=== PATIENT | female | born 1980 | race African-American/Black ===

== ENCOUNTER 2019-06-30 02:55 | Emergency (ER) | payer BC, SELFPAY ==
--- NOTE | ~2019-06-30 | CT_ITS ---
EXAMINATION: CT abdomen pelvis w con DATE: 06/30/2019 03:46 INDICATION: Right lower quadrant abdominal pain for 3 days. TECHNIQUE: Computed tomography (CT) of the abdomen and pelvis was performed without intravenous contr ast. Automated exposure control and iterative reconstruction technique were employed. Exam dose: 990 .31 mGy-cm total exam DLP. COMPARISON: None. FINDINGS: The lung bases are clear. Normal heart size. No pericardial or pleural effusion. Nonspecific small amount of free fluid along the posterior lower margin of the liver, right paracolic gutter and minimal interloop ascites.. The gallbladder is present. No bile duct or pancreatic duct dilatation. No hepatic, pancreatic, splen ic, adrenal or renal space-occupying mass lesion is evident. Normal caliber of the abdominal aorta. No intraperitoneal or retroperitoneal or pelvic mass lesion or adenopathy or ascites. There is an approximately 2.7 cm involuting follicle of the left ovary. There is marketed enlargement of the uterus with numerous calcified fibroids. The uterus measures up to 22 cm height, 12 cm anteroposterior dimension. An IUD is identified within the uterus. There is a prominent amount of fecal material within the colon. No bowel obstruction or intraperitone al free air. Small fat-containing umbilical hernia. Included skeletal structures are unremarkable. IMPRESSION: Minimal nonspecific free fluid within the abdominal cavity. Consider enteritis given the presence of trace interloop ascites, although no associated bowel wall thickening is noted. Normal appendix. Prominent uterine enlargement and numerous calcified uterine fibroids. IUD 2.7 cm probable involuting left ovarian follicle Reviewed, dictated and finalized at [facility]. Reviewed, dictated and finalized at [facility]. IMPRESSION: Minimal nonspecific free fluid within the abdominal cavity. Consid er enteritis given the presence of trace interloop ascites, although no associa ankit bowel wall thickening is noted. Normal appendix. Prominent uterine enlargement and numerous calcified uterine fibroids. IUD 2.7 cm probable involuting left ovarian follicle
[2019-06-30 02:59] VITALS: BP 166/70; PULSE 90; RESP 18; TEMP 36.6; O2SAT 100
[2019-06-30 03:20] LABS: Basophils Percent Auto 0.3 % (0.2-1.2); Eosinophils Absolute Auto 0.1 K/mm3 (0-0.3); Eosinophils Percent Auto 1.3 % (0-4.4); Hematocrit 35.7 % (37.0-47.0); Hemoglobin 10.5 g/dL (12.0-15.0); Immature Granulocyte Absolute 0.02 K/mm3 (0.00-0.031); Immature Granulocyte Percent A 0.3 % (0-0.5); Lymphocytes Absolute Auto 2.34 K/mm3 (0.9-3.2); Lymphocytes Percent Auto 31.4 % (18.3-44.2); Mean Corpuscular HGB Conc 29.4 g/dl (32-36); Mean Corpuscular Hemoglobin 24.1 pg (26-34); Mean Corpuscular Volume 82.1 fl (80-100); Mean Platelet Volume 9.3 fl (7.4-10.4); Monocytes Absolute Auto 0.8 K/mm3 (0.1-0.6); Monocytes Percent Auto 10.5 % (2.6-8.5); Neutrophils Absolute Auto 4.2 K/mm3 (1.3-6.7); Neutrophils Percent Auto 56.2 % (45.5-73.1); Platelet Count Result 363 k/mm3 (150-375); Red Blood Count 4.35 M/mm3 (4.2-5.4); Red Cell Distribution Width 16.1 % (11.5-14.5); White Blood Count 7.5 K/mm3 (4.5-10.0)
--- NOTE | 2019-06-30 03:23 | ED.ABDPAIN ---
HPI - Abdominal Pain General Chief Complaint: Abdominal Pain Stated Complaint: RLQ abd pain Time Seen by Provider: 06/30/19 03:02 Source: patient Mode of arrival: ambulatory Limitations: no limitations History of Present Illness HPI narrative: Patient is a 38-year-old female who presents to the emergency department with complaint of right lower quadrant abdominal pain. Patient reports onset of symptoms 3 days ago. Patient states she took a detox tea every day for the past 3 days. Patient denies any nausea, vomiting, or diarrhea aside from the laxative effects of the tea. Patient denies having had any constipation or urinary symptoms. Patient states the pain is sharp and located in the right lower quadrant. She denies any radiation of pain. She states pain is worse with movement. MD elicited complaint: abdominal pain Pertinent past history: none Onset (ago): day(s) (3) Pain Consistency: constant (With waxing/waning intensity) Location: RLQ Quality: sharp Radiation: none Migration to: no migration Exacerbating factors: movement Associated symptoms: denies other symptoms Review of Systems Review of Systems: All systems reviewed & are unremarkable except as noted in HPI and below Constitutional: Constitutional: Denies fever(s) Respiratory: Respiratory: Denies cough and Denies dyspnea Gastrointestinal: Gastrointestinal: Reports abdominal pain, Denies constipation, Denies diarrhea, Denies nausea and Denies vomiting Genitourinary: Genitourinary: Denies hematuria and Denies dysuria Musculoskeletal: Musculoskeletal: Denies back pain [facility] Past Medical History Medical History (Updated 06/30/19 @ 04:04 by Naina Thomas MD) Diabetes mellitus Uterine fibroid Surgical History Surgical History (Updated 06/30/19 @ 03:26 by Naina Thomas MD) No history of previous surgery Social History Social History (Updated 06/30/19 @ 03:26 by Naina Thomas MD) Smoking status: Never smoker Living arrangements: with family Gender identity (if verbalized by the patient): Female Exam Const: General: cooperative, no acute distress and alert Nutritional Appearance: well nourished Orientation/consciousness: patient oriented x3 Limitations: no limitations HENMT: Mouth: Yes lip normal and Yes moist mucous membranes Resp: Effort & Inspection: normal respiratory effort Auscultation: clear to auscultation bilaterally Cardio: Rate: regular rate Rhythm: regular rhythm GI: GI Palp: Yes Soft to palpation, Yes Tenderness to palpation present (GI) (Diffuse, greatest right lower quadrant), No Guarding due to palpation present (GI) and Yes Rebound tenderness present Auscultation: normal bowel sounds Other: Palpation elsewhere in the abdomen causes right lower quadrant pain : General: Yes no CVA tenderness Skin: General skin exam: normal color Neuro: General: patient oriented x3 Cognition (Neuro): normal cognition Speech: normal speech Extrem: General: normal to inspection, full ROM and no clubbing, cyanosis or edema Psych: Mental Status: mental status grossly normal Affect: normal affect Attitude: cooperative Course Course Emergency Course: Patient feeling better after Toradol. No findings to suggest appendicitis on CT scan. Suspect stimulant effect from her detox tea is causing some degree of bowel cramping and discomfort leading to her pain. Patient advised to use [id number] analgesics for pain and stop use of the tea that she has been drinking. Patient does have sizable fibroid uterus and is advised to follow-up with [facility]. Patient also advised she needs to seek primary care physician for further management of diabetes as her blood sugar is elevated and ongoing poor care for diabetes could lead to renal failure among other complications. Vital Signs Vital signs: Vital Signs Temperature 97.8 F 06/30/19 02:59 Pulse Rate 90 06/30/19 02:59 Respiratory Rate 18 06/30/19 02:59 Blood
[2019-06-30] MEDS: KETOROLAC 30 MG/ML VIAL (*BKC) IV PUSH (03:25)
[2019-06-30 03:35] LABS: Add Urine Microscopic? YES; Appearance Urine Clear (Clear); Bilirubin Urine Negative (Negative); Blood Urine Negative (Negative); Color Urine Straw (Yellow); Glucose Urine UA 1+ mg/dL (Negative); Ketones Urine Negative (Negative); Leukocyte Esterase Ur Trace LEU/UL (Negative); Mucus Urine Rare /lpf; Nitrate Urine Negative (Negative); Protein Urine Negative (Negative); Urobilinogen Urine Negative mg/dL (<2.0)
[2019-06-30 03:37] LABS: Alanine Aminotransferase 12 U/L (4-35); Albumin Level 4.2 g/dL (3.5-5.1); Alkaline Phosphatase 82 U/L (38-126); Aspartate Amino Transferase 16 U/L (14-36); Bilirubin,Total 0.3 mg/dL (0.2-1.3); Blood Urea Nitrogen 11 mg/dL (7-17); Carbon Dioxide 26 mmol/L (22-30); Chloride 102 mmol/L (98-107); Estimated Glomerular Filt Rate > 60; Glucose 228 mg/dL (65-105); Lipase 105 U/L (23-300); Potassium 4.1 mmol/L (3.4-5.0); Sodium 136 mmol/L (137-145)
[2019-06-30 03:39] LABS: Estimated Glomerular Filt Rate > 60
[2019-06-30 03:42] LABS: Hypochromasia 2+ (NORMAL); Ovalocytes 1+ (NORMAL); Platelet Estimate Adequate (Adequate)
[2019-06-30 04:17] VITALS: BP 138/77; PULSE 77; RESP 18; O2SAT 98
== END 2019-06-30 04:18 | disposition home or self-care (01) ==
PROVIDERS: Emergency Provider Emergency Medicine
DX: R10.31 Right lower quadrant pain (principal); D25.9 Leiomyoma of uterus, unspecified; E11.65 Type 2 diabetes mellitus with hyperglycemia; Z97.5 Presence of (intrauterine) contraceptive device
CPT/HCPCS: 36415; 74177; 80053; 81001; 81025; 83690; 85025; 87086; 87088; 96374; 99284; J1885; Q9967

== ENCOUNTER 2019-10-11 18:45 | Emergency (ER) | payer BC, SELFPAY ==
[2019-10-11] VITALS (11 sets, daily range): BP systolic 121–139; BP diastolic 69–94; PULSE 82–142; RESP 20–30; TEMP 36.8–37.9; O2SAT 97–100
--- NOTE | ~2019-10-11 | XR_ITS ---
EXAMINATION: XR chest 1V portable EXAM DATE: 10/11/2019 19:24 INDICATION: COVID 19. TECHNIQUE: Portable AP frontal chest x-ray was obtained. There is no prior study for comparison. FINDINGS: Small amount of bilateral ill-defined upper lobe airspace disease suspected. Given history provided, most likely small amount of acute lung injury from viral infection. No confluent consolidat ion, pneumothorax or pleural effusion suspected. There are no osseous abnormalities identified. Cardi omediastinal silhouette is normal. IMPRESSION: Small amount of bilateral upper lobe ill-defined acute airspace disease. Reviewed, dictated and finalized at [facility]. IMPRESSION: Small amount of bilateral upper lobe ill-defined acute airspace di sease.
--- NOTE | 2019-10-11 19:20 | ECG_ITS ---
Measurements Intervals Louise Rate: 109 P: 65 KS: 133 QRS: -32 QRSD: 98 T: 4 QT: 377 QTc: 509 Interpretive Statements SINUS TACHYCARDIA LEFT AXIS DEVIATION RSR' IN V1 OR V2, CONSIDER RIGHT VENTRICULAR HYPERTROPHY OR RIGHT VCD BORDERLINE T WAVE ABNORMALITY- INFERIOR LEADS ABNORMAL ECG Electronically Signed On 10-11-2019 19:40:58 CDT by Eliud Kelley D.O.
[2019-10-11 20:00] LABS: Basophils Percent Auto 0.1 % (0.2-1.2); Hematocrit 31.1 % (37.0-47.0); Hemoglobin 9.9 g/dL (12.0-15.0); Immature Granulocyte Absolute 0.15 K/mm3 (0.00-0.031); Lymphocytes Absolute Auto 1.24 K/mm3 (0.9-3.2); Lymphocytes Percent Auto 8.2 % (18.3-44.2); Mean Corpuscular HGB Conc 31.8 g/dl (32-36); Mean Corpuscular Hemoglobin 25.7 pg (26-34); Mean Corpuscular Volume 80.8 fl (80-100); Mean Platelet Volume 9.4 fl (7.4-10.4); Monocytes Absolute Auto 1.5 K/mm3 (0.1-0.6); Monocytes Percent Auto 9.9 % (2.6-8.5); Neutrophils Absolute Auto 12.2 K/mm3 (1.3-6.7); Neutrophils Percent Auto 80.8 % (45.5-73.1); Platelet Count Result 677 k/mm3 (150-375); Red Blood Count 3.85 M/mm3 (4.2-5.4); Red Cell Distribution Width 14.6 % (11.5-14.5); White Blood Count 15.1 K/mm3 (4.5-10.0)
[2019-10-11 20:15] LABS: Anion Gap 15 mmol/L (8-16); Blood Urea Nitrogen 10 mg/dL (7-17); Calcium 9.1 mg/dL (8.4-10.2); Carbon Dioxide 17 mmol/L (22-30); Chloride 98 mmol/L (98-107); Estimated CRCL calculation 78 ml/min; Estimated Glomerular Filt Rate > 60; Glucose 283 mg/dL (65-105); Potassium 3.9 mmol/L (3.4-5.0); Sodium 130 mmol/L (137-145)
[2019-10-11] MEDS: SODIUM CHLORIDE 0.9% IV 1,000 ML 999 ML IV CONT (20:50)
--- NOTE | 2019-10-11 21:01 | ED.SOB ---
HPI - SOB/Dyspnea General Chief Complaint: Shortness of Breath/Dyspnea Stated Complaint: COVID + FEVER,SOB,N/V Time Seen by Provider: 10/11/19 20:38 History of Present Illness HPI Narrative: Patient presents with her who are both positive for COVID. They are both coughing in the room. Patient wears her mask under her nose. Patient presents with increasing shortness of breath. She has no pain currently but when she coughs she has lower abdominal pain. Her fever still going up and down. She has borderline diabetes which has been controlled by diet. She is recently been drinking a lot of sugared beverages. Her blood sugar was over 400 at home. She works at the [employer]. She has an IUD for control. She has had no surgeries. She does not smoke cigarettes, drink alcohol, or do drugs. MD elicited complaint: shortness of breath and cough Pertinent past history: other (Known COVID) Onset (ago): day(s) Context: recent illness Timing: constant Severity: moderate Exacerbating factors: nothing Relieving factors: nothing Known history of: diabetes Associated symptoms: fever, cough, polydipsia (Drinking sugary beverages) and abdominal pain Treatment prior to arrival: none Related Data Allergies Allergy/AdvReac Type Severity Reaction Status Date / Time No Known Allergies Allergy Verified 10/11/19 19:28 Review of Systems Review of Systems: Narrative: CONSTITUTIONAL: He has fever, chills, or sweats. EYES: Denies visual changes, redness, or discharge. ENT: Denies rhinorrhea, congestion, sore throat, or otalgia. CARDIOVASCULAR: Denies chest pain, palpitations, or edema. RESPIRATORY: He has cough or dyspnea. GASTROINTESTINAL: She has lower abdominal pain with coughing, but not nausea, vomiting, or diarrhea. GENITOURINARY: Denies dysuria or hematuria. SKIN: Denies rash or itching. MUSCULOSKELETAL: Denies back pain, joint pain, or myalgia. NEUROLOGIC: Denies headache, numbness, or weakness. . All systems reviewed & are unremarkable except as noted in HPI and below PMFSH Past Medical History Medical History COVID-19 Diabetes mellitus Uterine fibroid Surgical History Surgical History No history of previous surgery Social History Social History Smoking status: Never smoker Gender identity (if verbalized by the patient): Female Exam Narrative: Exam Narrative: GENERAL: Well-appearing, well-nourished, and in no acute distress. Coughing. HEAD: Normocephalic, atraumatic. EYES: PERRLA and EOMI. ENT: Nares clear, no rhinorrhea or epistaxis. Mucous membranes moist. NECK: Supple. CHEST: Clear to auscultation. No respiratory distress. HEART: Regular rate and rhythm. No murmur heard. Normal peripheral pulses. ABDOMEN: Soft, nontender, nondistended, normal active bowel sounds. EXTREMITIES: Normal range of motion. No edema. SKIN: Warm, dry, no rash. NEURO: No focal deficits. Alert and oriented x3. PSYCH: Normal mood and affect. Const: General: no acute distress and alert Orientation/consciousness: patient oriented x3 Course Vital Signs Vital signs: Vital Signs Temperature 100.2 F H 10/11/19 18:59 Pulse Rate 142 H 10/11/19 18:59 Respiratory Rate 30 H 10/11/19 18:59 Blood Pressure 121/94 H 10/11/19 18:59 Pulse Oximetry 100 10/11/19 18:59 Temperature 98.3 F 10/11/19 23:57 Pulse Rate 82 10/11/19 23:57 Respiratory Rate 20 10/11/19 23:57 Blood Pressure 126/69 10/11/19 23:57 Pulse Oximetry 97 10/11/19 23:57 MDM - SOB/Dyspnea Medical Records Attestation: I reviewed the patient's medical records. Lab Data Attestation: I reviewed the patient's lab results. Result diagrams: 10/11/19 19:31 10/11/19 19:31 Labs: Lab Results 10/11/19 10/11/19 10/11/19 Range/Units 19:31 19:31 20:57 WBC
[2019-10-11] MEDS: INSULIN HUMAN REGULAR (*BKC) 100 UNITS/ML SUB-Q (21:12)
[2019-10-11 21:18] LABS: Lactic Acid 1.5 mmol/L (0.7-2.1)
--- NOTE | 2019-10-11 21:44 | PC.NURSE ---
Patient attempted to provide a urine specimen,unable to provide specimen at this time. Patient refusing straight cath at this time.
[2019-10-11 22:40] LABS: Add Urine Microscopic? YES; Appearance Urine Cloudy (Clear); Bacteria Urine Trace /hpf; Bilirubin Urine Negative (Negative); Blood Urine 1+ (Negative); Color Urine Yellow (Yellow); Glucose Urine UA 2+ mg/dL (Negative); Hyaline Casts Urine 15-19 /lpf; Ketones Urine 1+ mg/dL (Negative); Leukocyte Esterase Ur Trace LEU/UL (Negative); Mucus Urine Rare /lpf; Nitrate Urine Negative (Negative); Protein Urine 2+ mg/dL (Negative); RBC Urine 0-2 /hpf (0-2); Specific Grav Ur 1.013 (1.001-1.035); Squamous Epithelial Cell Urine Occasional /hpf (Few)
--- NOTE | 2019-10-11 23:21 | PC.NURSE ---
bedside glucose 324
[2019-10-11 23:26] LABS: Glucose Point of Care 324 (65-105)
== END 2019-10-11 23:59 | disposition home or self-care (01) ==
PROVIDERS: Emergency Medicine; Emergency Provider Emergency Medicine
DX: U07.1 COVID-19 (principal); E87.2 Acidosis; D72.829 Elevated white blood cell count, unspecified; R73.9 Hyperglycemia, unspecified; D47.3 Essential (hemorrhagic) thrombocythemia; Z97.5 Presence of (intrauterine) contraceptive device; R73.03 Prediabetes; R00.0 Tachycardia, unspecified; R94.31 Abnormal electrocardiogram [ECG] [EKG]
CPT/HCPCS: 36415; 71045; 80048; 81001; 82948; 83605; 85025; 87040; 93005; 96365; 96368; 99284; J0456; J0696; J1815; J7030

== ENCOUNTER 2020-01-10 06:29 | Emergency (ER) | payer BC, SELFPAY ==
[2020-01-10 06:33] VITALS: BP 172/78; PULSE 81; RESP 16; TEMP 36.2; O2SAT 100
[2020-01-10 06:42] VITALS: BP 153/87; PULSE 71; RESP 16; O2SAT 100
[2020-01-10 07:03] VITALS: BP 151/84; PULSE 80; RESP 18; O2SAT 100
[2020-01-10 07:16] VITALS: BP 157/86; PULSE 71; RESP 18; O2SAT 100
[2020-01-10 07:19] LABS: Anion Gap 9 mmol/L (8-16); Blood Urea Nitrogen 11 mg/dL (7-17); Calcium 8.8 mg/dL (8.4-10.2); Carbon Dioxide 25 mmol/L (22-30); Chloride 104 mmol/L (98-107); Estimated CRCL calculation 112 ml/min; Estimated Glomerular Filt Rate > 60; Glucose 146 mg/dL (65-105); Sodium 138 mmol/L (137-145)
[2020-01-10 07:29] LABS: Add Urine Microscopic? YES; Appearance Urine Clear (Clear); Bilirubin Urine Negative (Negative); Blood Urine 1+ (Negative); Color Urine Yellow (Yellow); Glucose Urine UA Negative (Negative); Ketones Urine Negative (Negative); Leukocyte Esterase Ur Negative LEU/UL (Negative); Mucus Urine Rare /lpf; Nitrate Urine Negative (Negative); Protein Urine Negative (Negative); RBC Urine 0-2 /hpf (0-2); Specific Grav Ur 1.015 (1.001-1.035); Squamous Epithelial Cell Urine Rare /hpf (Few); Urobilinogen Urine Negative mg/dL (<2.0); WBC Urine 0-3 /hpf
[2020-01-10 07:30] LABS: Basophils Percent Auto 0.2 % (0.2-1.2); Eosinophils Absolute Auto 0.1 K/mm3 (0-0.3); Eosinophils Percent Auto 1.5 % (0-4.4); Hematocrit 34.4 % (37.0-47.0); Hemoglobin 10.5 g/dL (12.0-15.0); Immature Granulocyte Absolute 0.02 K/mm3 (0.00-0.031); Immature Granulocyte Percent A 0.4 % (0-0.5); Lymphocytes Absolute Auto 1.36 K/mm3 (0.9-3.2); Lymphocytes Percent Auto 24.9 % (18.3-44.2); Mean Corpuscular HGB Conc 30.5 g/dl (32-36); Mean Corpuscular Volume 88.4 fl (80-100); Mean Platelet Volume 9.4 fl (7.4-10.4); Monocytes Absolute Auto 0.4 K/mm3 (0.1-0.6); Monocytes Percent Auto 7.3 % (2.6-8.5); Neutrophils Absolute Auto 3.6 K/mm3 (1.3-6.7); Neutrophils Percent Auto 65.7 % (45.5-73.1); Platelet Count Result 349 k/mm3 (150-375); Red Blood Count 3.89 M/mm3 (4.2-5.4); Red Cell Distribution Width 13.9 % (11.5-14.5); White Blood Count 5.5 K/mm3 (4.5-10.0)
[2020-01-10 08:02] VITALS: BP 148/88; PULSE 68; RESP 18; O2SAT 100
--- NOTE | 2020-01-10 08:04 | ED.GENADULT ---
HPI - General Adult General Chief complaint: Recheck/Abnormal Lab/Rx Stated complaint: HTN Time Seen by Provider: 01/10/20 06:59 History of Present Illness HPI narrative: Patient is a 39-year-old female who presents ER with concerns of hypertension. Reports she is taking her blood pressure this morning and her systolic blood pressure was in the 170s. She reports that after seeing her doctor several days ago she found out her blood pressure had been running in the 140s and so she brought a monitor for home. She is having no chest pain or shortness of breath or nausea or vomiting. No headache or change in vision. Patient is taking medication for diabetes and also iron for anemia. Related Data Home Medications Medication Instructions Recorded Confirmed ergocalciferol (vitamin D2) 01/10/20 metformin mg PO 01/10/20 Allergies Allergy/AdvReac Type Severity Reaction Status Date / Time No Known Allergies Allergy Verified 01/10/20 07:05 Review of Systems Review of Systems: All systems reviewed & are unremarkable except as noted in HPI and below Constitutional: Constitutional: Denies chills, Denies fever(s) and Denies weakness Cardiovascular: Cardiovascular: Denies chest pain and Denies radiating jaw, neck or arm pain Gastrointestinal: Gastrointestinal: Denies abdominal pain, Denies nausea and Denies vomiting Neurologic: Denies headache(s) and Denies numbness PMFSH Past Medical History Medical History (Updated 01/10/20 @ 08:10 by Diallo Mcnulty MD) COVID-19 Diabetes mellitus Uterine fibroid Surgical History Surgical History No history of previous surgery Social History Social History Smoking status: Never smoker Gender identity (if verbalized by the patient): Female Exam Narrative: Exam Narrative: GENERAL: Well-appearing, well-nourished, and in no acute distress. HEAD: Normocephalic, atraumatic. EYES: PERRL and EOMI. CHEST: Clear to auscultation. No respiratory distress. HEART: Regular rate and rhythm. Normal peripheral pulses. ABDOMEN: Soft, nontender, nondistended, palpable fibroids in the lower abdomen. EXTREMITIES: Normal range of motion. No edema. NEURO: Alert and oriented x3. PSYCH: Normal mood and affect. Course Course Emergency Course: Patient informed of results. Blood pressures come down to 148/88. She reports she will follow up with her PCP will not start medication today. Patient given education and reassurance regarding blood pressure readings and management. Vital Signs Vital signs: Vital Signs Temperature 97.1 F L 01/10/20 06:33 Pulse Rate 81 01/10/20 06:33 Respiratory Rate 16 01/10/20 06:33 Blood Pressure 172/78 H 01/10/20 06:33 Pulse Oximetry 100 01/10/20 06:33 Temperature 97.1 F L 01/10/20 06:33 Pulse Rate 68 01/10/20 08:02 Respiratory Rate 18 01/10/20 08:02 Blood Pressure 148/88 H 01/10/20 08:02 Pulse Oximetry 100 01/10/20 08:02 Medical Decision Making Vital Signs Vital Signs: Vital Signs Temperature 97.1 F L 01/10/20 06:33 Pulse Rate 81 01/10/20 06:33 Respiratory Rate 16 01/10/20 06:33 Blood Pressure 172/78 H 01/10/20 06:33 Pulse Oximetry 100 01/10/20 06:33 Temperature 97.1 F L 01/10/20 06:33 Pulse Rate 68 01/10/20 08:02 Respiratory Rate 18 01/10/20 08:02 Blood Pressure 148/88 H 01/10/20 08:02 Pulse Oximetry 100 01/10/20 08:02 Lab Data Result diagrams: 01/10/20 06:50 01/10/20 06:50 Labs: Lab Results 01/10/20 01/10/20 01/10/20 Range/Units 06:50 06:50 07:01 WBC 5.5 (4.5-10.0) K/mm3 RBC 3.89 L (4.2-5.4) M/mm3 Hgb 10.5 L (12.0-15.0) g/dL Hct 34.4 L (37.0-47.0) % MCV 88.4 (80-100) fl MCH 27.0 (26-34) pg MCHC 30.5 L (32-36) g/dl RDW 13.9 (11.5-14.5) % Plt Count 349 (150-375) k/mm3 MPV 9.4 (7.4-10.4
[2020-01-10 08:16] VITALS: BP 148/88; PULSE 80; RESP 20; O2SAT 100
== END 2020-01-10 08:18 | disposition home or self-care (01) ==
PROVIDERS: Emergency Medicine; Emergency Provider Emergency Medicine; PCP Family Medicine
DX: I10 Essential (primary) hypertension (principal); E11.9 Type 2 diabetes mellitus without complications; D50.9 Iron deficiency anemia, unspecified; Z79.84 Long term (current) use of oral hypoglycemic drugs; Z86.19 Personal history of other infectious and parasitic diseases
CPT/HCPCS: 36415; 80048; 81001; 85025; 99283

== ENCOUNTER → 2020-05-07 01:58 | Outpatient (CLI) | payer BC, SELFPAY ==
[2020-05-08 08:28] LABS: SARS-CoV-2 RNA PCR Negative
== END ==
PROVIDERS: PCP Family Medicine; Visit Provider Internal Medicine Gastroenterology
DX: Z01.812 Encounter for preprocedural laboratory examination (principal); Z20.822 Contact with and (suspected) exposure to COVID-19
CPT/HCPCS: C9803; U0003; U0005

== ENCOUNTER 2020-05-10 01:16 | Day surgery (SDC) | payer BC, SELFPAY ==
[2020-03-16 13:06] VITALS: BMI 33.7
[2020-04-23 10:37] VITALS: BMI 33.7
[2020-05-10 11:27] VITALS: BP 149/84; PULSE 87; RESP 16; TEMP 36.8; O2SAT 100
[2020-05-10] MEDS: LACTATED RINGERS 1,000 ML 150 ML IV CONT (11:32)
[2020-05-10 11:50] LABS: Glucose Point of Care 230 (65-105)
--- NOTE | 2020-05-10 12:12 | WPDANESEPPF ---
Anes - Initial Pre Proc Eval Procedure: Operation Date: 05/10/20 12:30 Proposed Procedures p Colonoscopy - Boris Flores DO Date/Time: 05/10/20 12:12 Surgeon: Boris Flores DO Pre Op Diagnosis: bright red blood per rectum Patient Data Age: 39 Gender: F Height: 5 ft 6 in Weight: 95.3 kg Last Vital Signs Temp 98.3 F 05/10/20 11:27 Pulse 87 05/10/20 11:27 Resp 16 05/10/20 11:27 BP 149/84 H 05/10/20 11:27 Pulse Ox 100 05/10/20 11:27 Allergies Allergy/AdvReac Type Severity Reaction Status Date / Time No Known Allergies Allergy Verified 05/10/20 11:26 Home Medications Medication Instructions Recorded Confirmed Type ergocalciferol (vitamin D2) 1,250 mcg PO DAILY 01/10/20 03/16/20 History metformin 2,000 mg PO DAILY 01/10/20 03/16/20 History ascorbic acid (vitamin C) 500 mg 500 mg PO DAILY 01/27/20 03/16/20 History capsule ferrous sulfate 325 mg (65 mg 325 mg PO BID 01/27/20 03/16/20 History iron) tablet Laboratory Tests 05/10/20 11:44 POC Capillary Glucose 230 mg/dl H mg/dl (65-105) Patient hx anesthesia problems: none Family hx anesthesia problems: none PMFSH Past Medical History Medical History (Updated 01/27/20 @ 14:27 by Vanesa Santiago MA) Anemia COVID-19 Diabetes mellitus History of x 4 History of genital warts Pneumonia Uterine fibroid Surgical History Surgical History (Updated 01/27/20 @ 14:27 by Vanesa Santiago MA) History of cryosurgery History of dilation and curettage x 4 Family History Family History (Updated 01/27/20 @ 08:47 by Vanesa Santiago MA) Mother Hypertension Father Leukemia Social History Social History (Updated 01/27/20 @ 08:47 by Vanesa Santiago MA) Smoking status: Never smoker Alcohol intake: never Substance use: never Substance use type: does not use Living arrangements: with family Gender identity (if verbalized by the patient): Female Spiritual care concerns: No Anes - Eval Final PreProcedure Day of Procedure 05/10/20 12:12 Patient weight: obese Heart: regular rate and rhythm Lungs: clear to auscultation Airway: Mallampati scale Neurological: alert and oriented Last oral intake: >/= 8 hours ASA classification: II Emergent: no Anesthetic plan: proceed Anesthesia type and monitoring: general GIVS and standard monitoring Informed Consent: The patient's anesthetic plan and its attendant risks and benefits were discussed with the patient/family/POA. Questions were solicited and answers provided to the satisfaction of the patient/family/POA.
--- NOTE | 2020-05-10 12:23 | WPDGICN ---
GI Consult Note Consult date/time: 05/10/20 12:23 HPI: Reason for visit is colonoscopy. This very pleasant lady seen in consultation the request of the primary physician. Impression: Here very pleasant lady with a history of rectal bleeding. Bleeding in the perianal in origin. Underlying inflammatory neoplastic disease needs to be excluded. Diabetes mellitus. Recommendation: Colonoscopy. History: This very pleasant lady's being evaluated for rectal bleeding. She had 2 episodes of bright red blood per rectum. When the episodes she was having significant constipation and straining. The other episode consisted of blood streak in the toilet water. Her GI review systems otherwise unremarkable at this time. She has no family history of colitis or colon cancer. Physical examination: General: very pleasant patient in no acute distress. HEENT: Head was normocephalic sclerae is clear mouth without masses neck was supple. Heart: Rate rhythm regular without S3 or S4. Lungs: CTA. Abdomen: Soft with no guarding or rigidity. Bowel sounds were active. Neurologic: Cranial nerves 2 through 12 intact. No focal defects. No clonus. Musculoskeletal system: Revealed no joint tenderness or swelling no muscle atrophy. Extremities: Reveal no significant edema. Skin: Warm and dry with normal turgor. Mental status: intact. Patient is alert and oriented. Review of Systems Review of Systems: All systems reviewed & are unremarkable except as noted in HPI and below PMFSH Past Medical History Medical History (Updated 01/27/20 @ 14:27 by Vanesa Santiago MA) Anemia COVID-19 Diabetes mellitus History of x 4 History of genital warts Pneumonia Uterine fibroid Surgical History Surgical History (Updated 01/27/20 @ 14:27 by Vanesa Santiago MA) History of cryosurgery History of dilation and curettage x 4 Family History Family History (Updated 01/27/20 @ 08:47 by Vanesa Santiago MA) Mother Hypertension Father Leukemia Social History Social History (Updated 01/27/20 @ 08:47 by Vanesa Santiago MA) Smoking status: Never smoker Alcohol intake: never Substance use: never Substance use type: does not use Living arrangements: with family Gender identity (if verbalized by the patient): Female Spiritual care concerns: No Meds Home Medications and Allergies Home Medications Medication Instructions Recorded Confirmed Type ergocalciferol (vitamin D2) 1,250 mcg PO DAILY 01/10/20 03/16/20 History metformin 2,000 mg PO DAILY 01/10/20 03/16/20 History ascorbic acid (vitamin C) 500 mg 500 mg PO DAILY 01/27/20 03/16/20 History capsule ferrous sulfate 325 mg (65 mg 325 mg PO BID 01/27/20 03/16/20 History iron) tablet Allergies Allergy/AdvReac Type Severity Reaction Status Date / Time No Known Allergies Allergy Verified 05/10/20 11:26 Vital Signs Vital Signs - 24 hr 05/10/20 11:27 Temperature 36.8 C Pulse Rate 87 Respiratory Rate 16 Blood Pressure 149/84 H Pulse Oximetry 100
[2020-05-10 12:47] VITALS: BP 118/72; PULSE 89; RESP 22; O2SAT 100
[2020-05-10 12:57] VITALS: BP 119/76; PULSE 78; RESP 18; O2SAT 100
[2020-05-10 13:07] VITALS: BP 135/86; PULSE 83; RESP 17; O2SAT 99
== END 2020-05-10 13:28 | disposition home or self-care (01) ==
PROVIDERS: PCP Family Medicine; Visit Provider Internal Medicine Gastroenterology
PROC: 0DJD8ZZ Inspection of Lower Intestinal Tract, Via Natural or Artificial Opening Endoscopic (ICD-10-PCS; CPT 45378; principal; 2020-05-10 12:30)
DX: K62.5 Hemorrhage of anus and rectum (principal); K62.1 Rectal polyp; K64.8 Other hemorrhoids; D64.9 Anemia, unspecified; Z86.16 Personal history of COVID-19; E11.9 Type 2 diabetes mellitus without complications; Z79.84 Long term (current) use of oral hypoglycemic drugs; E66.9 Obesity, unspecified; Z68.33 Body mass index [BMI] 33.0-33.9, adult
CPT/HCPCS: 45380; 82948; 88305; C9803; J2704; J7120; U0003; U0005